=== PATIENT | male | born 1955 | race Caucasian/White ===

== ENCOUNTER 2016-11-17 08:58 | Outpatient (CLI) | payer OTHER | END 2016-11-17 08:59 | disposition home or self-care (01) | LOC: BURLAB 08:58 | PROVIDERS: ATTEND Physician Assistant Medical | DX: B19.20 Unspecified viral hepatitis C without hepatic coma (principal) | CPT/HCPCS: 36415; 87522 ==

== ENCOUNTER 2017-02-26 09:33 | Outpatient (CLI) | payer OTHER ==
--- NOTE | 2017-02-26 20:46 | ULT ---
HEPATIC RIGHT UPPER QUADRANT ULTRASOUND 02/26/17 Ultrasonography of the right upper quadrant was performed for evaluation in this patient with known hepatitis C. Documentary images and worksheets were provided and reviewed. The liver does not image exceptionally well due to gas, body habitus, and it is extremely dense. It is enlarged measuring 16.1 cm in oblique sagittal dimension. A diffuse fatty infiltration is suspect ed. There are no dilated intrahepatic ducts or signs of mass. Portal venous flow appears to be towar ds the liver as expected. The gallbladder contains a thick wall measuring 4 mm in thickness. Gallstones are present within the gallbladder. The common bile duct is borderline large at 6 mm in caliber. No stones were appreciate d within the duct. It was not seen in its entirety, however. The right kidney was 10 cm long and con tained no sign of mass or hydronephrosis. The pancreas was seen poorly, but the visible areas were u nremarkable. IMPRESSION: 1. Hepatomegaly and probably diffuse fatty infiltration. 2. Gallstones with wall thickening of the gallbladder which could signify cholecystitis. Border line common bile duct diameter. POS: HOME
== END 2017-02-26 09:34 | disposition home or self-care (01) ==
LOC: BURULT 09:33
PROVIDERS: ATTEND Internal Medicine Gastroenterology
DX: B19.20 Unspecified viral hepatitis C without hepatic coma (principal); K80.20 Calculus of gallbladder without cholecystitis without obstruction; R29.6 Repeated falls; Z86.010 Personal history of colon polyps
CPT/HCPCS: 76705

== ENCOUNTER 2017-03-10 07:37 | Outpatient (CLI) | payer OTHER ==
[2017-03-10 08:21] LABS: Hemoglobin A1c 5.3 % (4.0-6.0)
[2017-03-10 18:25] LABS: Folate (Folic Acid) 5.8 ng/mL (7.0-31.4)
[2017-03-11 14:39] LABS: Ref Lab Test Ordered PAVAL
[2017-03-12 07:33] LABS: Antinuclear AB Negative (Negative)
== END 2017-03-10 07:38 | disposition home or self-care (01) ==
LOC: BURLAB 07:37
PROVIDERS: ATTEND Psychiatry & Neurology Neurology
DX: G95.9 Disease of spinal cord, unspecified (principal)
CPT/HCPCS: 36415; 82390; 82525; 82607; 82746; 83036; 84165; 84425; 84446; 85652; 86038; 86334

== ENCOUNTER 2017-04-26 12:05 | Outpatient (CLI) | payer OTHER | END 2017-04-26 12:06 | disposition home or self-care (01) | LOC: BURLAB 12:05 | PROVIDERS: ATTEND Physician Assistant Medical | DX: B19.20 Unspecified viral hepatitis C without hepatic coma (principal) | CPT/HCPCS: 36415; 87522 ==

== ENCOUNTER 2017-09-29 08:54 | Outpatient (CLI) | payer OTHER ==
--- NOTE | 2017-09-29 18:14 | ULT ---
RIGHT UPPER QUADRANT ABDOMINAL ULTRASOUND: 09/29/17 Comparison is made with the 02/26/17 study. There has been little change in the interval. The liver is mildly enlarged at 16.5 cm in oblique sagi ttal length. It does not image well, just like before but no focal lesions or dilated ducts were seen . There is probably some fatty infiltration. The pancreas was visible in sections. The visible areas appear normal but not all areas were seen adequately. The gallbladder appears to contain a few small stones and sludge. I was not impressed at the wall thickness on today's scan. The common bile duct wa s 6 mm in caliber which is borderline in size. The aorta and IVC were not covered. IMPRESSION: 1. No substantial change since the prior study. 2. Mild hepatomegaly and diffuse fatty infiltration. 3. Small gallstones and sludge without definite wall thickening. POS: HOME
== END 2017-09-29 08:55 | disposition home or self-care (01) ==
LOC: BURULT 08:54
PROVIDERS: ATTEND Internal Medicine Gastroenterology
DX: K74.60 Unspecified cirrhosis of liver (principal); K76.0 Fatty (change of) liver, not elsewhere classified; K80.20 Calculus of gallbladder without cholecystitis without obstruction; Z86.010 Personal history of colon polyps; Z86.19 Personal history of other infectious and parasitic diseases
CPT/HCPCS: 76705

== ENCOUNTER 2018-03-16 09:06 | Outpatient (CLI) | payer OTHER ==
[2018-03-16 09:43] LABS: #Eosinphils 0.2 thou/uL (0.0-0.7); #Lymphocytes 0.9 thou/uL (1.20-3.40); #Monocytes 0.3 thou/uL (0.11-0.59); #Neutrophils 2.7 thou/uL (1.40-6.50); %Basophils 0.9 % (0.0-1.0); %Eosinophils 4.2 % (0.0-10.0); %Lymphocytes 22.8 % (21.0-51.0); %Monocytes 6.9 % (0.0-10.0); %Neutrophils 65.3 % (42.0-75.0); Hemoglobin 13.5 g/dL (14.0-18.0); Mean Corpuscular HGB CONC 34.6 g/dL (32.0-36.0); Mean Corpuscular Hemoglobin 30.8 pg (27.0-31.0); Mean Platelet Volume 6.1 fL (7.4-10.4); Platelet Count 108 thou/uL (130-400); RBC Distribution Width 12.8 % (11.5-14.5); Red Blood Cell (RBC) Count 4.38 mill/uL (4.70-6.10); White Blood Cell (WBC) Count 4.1 thou/uL (4.8-10.8)
[2018-03-16 09:56] LABS: ALT (SGPT) 25 U/L (8-55); AST (SGOT) 29 U/L (5-34); Albumin 4.4 g/dL (3.4-4.8); Alkaline Phosphatase 76 U/L (40-150); Anion Gap 14 mmol/L (10-20); BUN (Urea Nitrogen) 17 mg/dL (8.4-25.7); Calc. Creatinine Clearance 0 mL/min (70-130); Calcium 9.5 mg/dL (7.8-10.44); Carbon Dioxide 25 mmol/L (23-31); Chloride 106 mmol/L (98-107); Estimated GFR-MDRD 76; Globulin 2.7 g/dL (2.4-3.5); Glucose 99 mg/dL (80-115); Potassium 4.3 mmol/L (3.5-5.1); Protein, Total 7.1 g/dL (5.8-8.1); Sodium 141 mmol/L (136-145)
--- NOTE | 2018-03-16 11:50 | ULT ---
LIMITED ABDOMEN ULTRASOUND: HISTORY: Cirrhosis. Hepatis C. COMPARISON: 09/29/17. TECHNIQUE: Limited evaluation of the abdomen is performed. FINDINGS: Pancreas is poorly defined. Increased echogenicity of the liver which limits evaluation for hepatic masses and intrahepatic bilia ry dilatation. Right hepatic lobe measures 15.3 cm. Suboptimal evaluation of the portal vein. Right Kidney: Grossly, no hydronephrosis. The right kidney measures 5.0 x 11.5 cm in the longitudinal pain. Subop timal evaluation of the right kidney in the transverse dimension. Sonographic evidence of cholelithiasis. A small amount of sludge is also present. Gallbladder wall does not appear to be thickened. No significant pericholecystic fluid. Accounting Assistant does not comment on the presence or absence of Ham's sign. Limited evaluation of the common bile duct. IMPRESSION: 1. Increased echogenicity of the liver likely due to hepatic steatosis or hepatocellular disease. 2. Sonographic evidence of cholelithiasis without evidence of cholecystitis. POS: [facility]
[2018-03-17 05:36] LABS: PLT Morphology Comment Appears Decreased; RBC Morphology Normal
== END 2018-03-16 09:07 | disposition home or self-care (01) ==
LOC: BURULT 09:06
PROVIDERS: ATTEND Internal Medicine Gastroenterology
DX: K74.60 Unspecified cirrhosis of liver (principal); K80.20 Calculus of gallbladder without cholecystitis without obstruction; R93.2 Abnormal findings on diagnostic imaging of liver and biliary tract; Z86.19 Personal history of other infectious and parasitic diseases
CPT/HCPCS: 36415; 76705; 80053; 82105; 82140; 85025

== ENCOUNTER 2018-05-01 15:14 | Emergency (ER) | payer OTHER ==
--- NOTE | 2018-05-01 16:14 | RAD ---
LEFT RIBS 3 VIEWS: Date: 05/01/18 HISTORY: Injury to left chest and ribs. FINDINGS: On the oblique view, there is suggestion of cortical disruption involving the lateral aspect of the l eft fifth rib. This is not confirmed on the other images. No other fracture identified. Left lung is clear and well aerated. IMPRESSION: Question fracture lateral fifth rib. POS: [facility]
== END 2018-05-01 15:57 | disposition home or self-care (01) ==
LOC: BURERS 15:14
DX: S22.32XA Fracture of one rib, left side, initial encounter for closed fracture (principal); I10 Essential (primary) hypertension; F32.9 Major depressive disorder, single episode, unspecified; F17.210 Nicotine dependence, cigarettes, uncomplicated; Z79.899 Other long term (current) drug therapy; Z79.82 Long term (current) use of aspirin; W18.30XA Fall on same level, unspecified, initial encounter; Y93.01 Activity, walking, marching and hiking

== ENCOUNTER 2018-10-12 15:37 | Outpatient (CLI) | payer OTHER ==
--- NOTE | 2018-10-12 20:15 | RAD ---
RIGHT HUMERUS TWO VIEWS: 10/12/18 No fracture was evident. The humerus appears intact. IMPRESSION: No acute finding. POS: HOME
--- NOTE | 2018-10-12 21:22 | RAD ---
RIGHT SHOULDER THREE VIEWS: 10/12/18 No fracture or current dislocation was seen. The AC joint is normal in width. There is an irregularit y, however, along the superolateral portion of the humeral head and extending towards the greater tub ercle. Sometimes this can be a Hill-Sachs deformity from an old dislocation. The glenoid fossa seems smooth. An old healed fracture of the distal one third of the clavicle was noted. IMPRESSION: 1. No acute bony injury. 2. Healed clavicular fracture. 3. Possible Hill-Sachs deformity of the humeral head (? prior dislocation). POS: HOME
== END 2018-10-12 15:38 | disposition home or self-care (01) ==
LOC: BURRAD 15:37
PROVIDERS: ATTEND Family Medicine
DX: M79.601 Pain in right arm (principal); Z87.81 Personal history of (healed) traumatic fracture

== ENCOUNTER 2018-11-22 19:05 | Emergency (ER) | payer OTHER ==
[2018-11-22 20:36] LABS: Clarity Cloudy (Clear)
[2018-11-22 20:37] LABS: Bilirubin Small (Negative); Blood, Urine Trace (Negative); Glucose, Urine (Dipstick) Negative (Negative); Leukocyte Large (Negative); Nitrite Positive (Negative); Protein, Urine (Dipstick) Negative (Neg-Trace); Urobilinogen > or = 8.0 mg/dL (0.2-1.0); pH, Urine 7.5 (5.0-9.0)
[2018-11-22 20:41] LABS: #Eosinphils 0.1 thou/uL (0.0-0.7); #Monocytes 0.7 thou/uL (0.11-0.59); #Neutrophils 5.5 thou/uL (1.40-6.50); %Basophils 0.6 % (0.0-1.0); %Eosinophils 0.9 % (0.0-10.0); %Lymphocytes 13.6 % (21.0-51.0); %Monocytes 9.6 % (0.0-10.0); %Neutrophils 75.3 % (42.0-75.0); ALT (SGPT) 24 U/L (8-55); AST (SGOT) 23 U/L (5-34); Albumin 4.3 g/dL (3.4-4.8); Alkaline Phosphatase 62 U/L (40-150); Anion Gap 14 mmol/L (10-20); BUN (Urea Nitrogen) 16 mg/dL (8.4-25.7); Bilirubin, Total 1.8 mg/dL (0.2-1.2); Calc. Creatinine Clearance 0 mL/min (70-130); Calcium 9.9 mg/dL (7.8-10.44); Carbon Dioxide 25 mmol/L (23-31); Chloride 104 mmol/L (98-107); Estimated GFR-MDRD Greater than 90; Globulin 2.9 g/dL (2.4-3.5); Glucose 109 mg/dL (80-115); Hemoglobin 13.3 g/dL (14.0-18.0); Mean Corpuscular HGB CONC 34.5 g/dL (32.0-36.0); Mean Corpuscular Hemoglobin 31.2 pg (27.0-31.0); Mean Corpuscular Volume 90.4 fL (78.0-98.0); Platelet Count 107 thou/uL (130-400); Protein, Total 7.2 g/dL (5.8-8.1); RBC Distribution Width 13.2 % (11.5-14.5); Red Blood Cell (RBC) Count 4.25 mill/uL (4.70-6.10); Sodium 139 mmol/L (136-145); White Blood Cell (WBC) Count 7.3 thou/uL (4.8-10.8)
[2018-11-22 20:42] LABS: Critical Call w/ Read Back NOT CALLED; Manual Diff?? YES
[2018-11-22 20:43] LABS: Bacteria/HPF 4+ HPF (None Seen); RBC/HPF 0-3 HPF (0-3); Squamous Epithelial 0-3 HPF (0-3)
[2018-11-22 20:43] LABS: MDiff Complete? YES; Platelet Morphology Comment Appears Decreased
[2018-11-22] MEDS ORDERED: Cephalexin 500 MG CAP ONE (21:11)
[2018-11-22] MEDS ORDERED: Sulfameth/Trimethoprim DS 800-160mg TAB ONE (21:11)
--- NOTE | 2018-11-22 21:36 | RAD ---
RIGHT ELBOW FOUR VIEWS: 11/22/18 Reticulation is seen in the soft tissues posterior to the elbow and there is considerable swelling ov er the olecranon. Nevertheless, no fracture was appreciated. I do not see definite displacement of th e fat pads to allow the diagnosis of joint fluid. There is some minor bone spurring in the joint. IMPRESSION: Prominent soft tissue swelling without definite acute bony finding. POS: HOME
== END 2018-11-22 21:11 | disposition home or self-care (01) ==
LOC: BURERS 19:05
DX: L03.113 Cellulitis of right upper limb (principal); N39.0 Urinary tract infection, site not specified; F32.9 Major depressive disorder, single episode, unspecified; I10 Essential (primary) hypertension; F17.210 Nicotine dependence, cigarettes, uncomplicated; Z79.82 Long term (current) use of aspirin; Z79.899 Other long term (current) drug therapy
CPT/HCPCS: 10160; 36415; 80053; 81003; 81015; 85025; 87040; 87070; 87077; 87086; 87186; 87205

== ENCOUNTER 2018-12-21 09:36 | Outpatient (CLI) | payer OTHER ==
[2018-12-21 11:11] LABS: INR-International Normal Ratio 1.1; Prothrombin Time 14.1 SEC (12.0-14.7)
[2018-12-21 17:38] LABS: ALT (SGPT) 20 U/L (8-55); AST (SGOT) 25 U/L (5-34); Alkaline Phosphatase 85 U/L (40-150); Anion Gap 12 mmol/L (10-20); BUN (Urea Nitrogen) 18 mg/dL (8.4-25.7); Bilirubin, Total 1.3 mg/dL (0.2-1.2); Calc. Creatinine Clearance 0 mL/min (70-130); Calcium 9.6 mg/dL (7.8-10.44); Carbon Dioxide 30 mmol/L (23-31); Chloride 100 mmol/L (98-107); Estimated GFR-MDRD Greater than 90; Globulin 2.6 g/dL (2.4-3.5); Glucose 108 mg/dL (80-115); Potassium 3.4 mmol/L (3.5-5.1); Protein, Total 6.6 g/dL (5.8-8.1); Sodium 139 mmol/L (136-145)
[2018-12-21 17:48] LABS: #Eosinphils 0.1 thou/uL (0.0-0.7); #Monocytes 0.5 thou/uL (0.11-0.59); #Neutrophils 5.9 thou/uL (1.40-6.50); %Basophils 0.1 % (0.0-1.0); %Eosinophils 0.7 % (0.0-10.0); %Lymphocytes 13.1 % (21.0-51.0); %Monocytes 6.9 % (0.0-10.0); %Neutrophils 79.1 % (42.0-75.0); Hemoglobin 14.2 g/dL (14.0-18.0); Mean Corpuscular HGB CONC 32.2 g/dL (32.0-36.0); Mean Corpuscular Hemoglobin 30.1 pg (27.0-31.0); Mean Corpuscular Volume 93.3 fL (78.0-98.0); Platelet Count 157 thou/uL (130-400); RBC Distribution Width 12.9 % (11.5-14.5); Red Blood Cell (RBC) Count 4.72 mill/uL (4.70-6.10); White Blood Cell (WBC) Count 7.5 thou/uL (4.8-10.8)
--- NOTE | 2018-12-21 20:52 | ULT ---
RIGHT UPPER QUADRANT ULTRASOUND: 12/21/18 Comparison is made with a prior ultrasound dated 03/16/18. Once again hepatomegaly is seen. The liver seems larger today, measuring 19.4 cm in oblique sagittal length through the right lobe. It is echo dense but no gross mass or dilated duct was seen. Portal ve nous flow appears to be towards the liver. The gallbladder is seen less than optimally. On several im ages there is the suggestion of gallstones within it. The prior study more convincingly showed gallst ones. The common bile duct today was measured at about 8 to 9 mm which is large. The view given of it on the ultrasound was suboptimal, however. The right kidney is 11.2 cm long and appears normal. The pancreas was seen poorly on this study. IMPRESSION: 1. Hepatomegaly. The hepatic size seems a bit larger than the prior 03/16/18 study. 2. Potential mild enlargement of the common bile duct without intrahepatic dilation. 3. Probable gallstones. POS: HOME
== END 2018-12-21 09:37 | disposition home or self-care (01) ==
LOC: BURULT 09:36
PROVIDERS: ATTEND Internal Medicine Gastroenterology
DX: K74.60 Unspecified cirrhosis of liver (principal); G98.8 Other disorders of nervous system; R16.0 Hepatomegaly, not elsewhere classified; K83.8 Other specified diseases of biliary tract
CPT/HCPCS: 36415; 76705; 80053; 85025; 85610

== ENCOUNTER 2018-12-30 08:27 | Inpatient (IN) | payer OTHER ==
[2018-12-30 08:57] LABS: #Basophils 0.1 thou/uL (0.0-0.2); #Eosinphils 0.1 thou/uL (0.0-0.7); #Lymphocytes 0.9 thou/uL (1.20-3.40); #Monocytes 0.5 thou/uL (0.11-0.59); #Neutrophils 11.5 thou/uL (1.40-6.50); %Basophils 0.6 % (0.0-1.0); %Eosinophils 1.1 % (0.0-10.0); %Lymphocytes 6.9 % (21.0-51.0); %Monocytes 3.6 % (0.0-10.0); %Neutrophils 87.8 % (42.0-75.0); Hemoglobin 13.7 g/dL (14.0-18.0); Mean Corpuscular HGB CONC 33.7 g/dL (32.0-36.0); Mean Corpuscular Hemoglobin 29.9 pg (27.0-31.0); Mean Corpuscular Volume 88.8 fL (78.0-98.0); Mean Platelet Volume 6.6 fL (7.4-10.4); Platelet Count 170 thou/uL (130-400); RBC Distribution Width 12.5 % (11.5-14.5); Red Blood Cell (RBC) Count 4.56 mill/uL (4.70-6.10); White Blood Cell (WBC) Count 13.1 thou/uL (4.8-10.8)
[2018-12-30 09:16] LABS: ALT (SGPT) 17 U/L (8-55); AST (SGOT) 23 U/L (5-34); Albumin 3.1 g/dL (3.4-4.8); Alkaline Phosphatase 83 U/L (40-150); Anion Gap 14 mmol/L (10-20); BUN (Urea Nitrogen) 13 mg/dL (8.4-25.7); Bilirubin, Total 1.2 mg/dL (0.2-1.2); Calc. Creatinine Clearance 0 mL/min (70-130); Calcium 8.6 mg/dL (7.8-10.44); Carbon Dioxide 35 mmol/L (23-31); Estimated GFR-MDRD Greater than 90; Globulin 2.7 g/dL (2.4-3.5); Glucose 116 mg/dL (80-115); Protein, Total 5.8 g/dL (5.8-8.1)
[2018-12-30 09:20] LABS: Chloride 91 mmol/L (98-107); Sodium 139 mmol/L (136-145)
[2018-12-30] MEDS ORDERED: metroNIDAZOLE 500 MG/100 ML BAG ONE (09:24)
[2018-12-30 09:37] LABS: Potassium 2.3 mmol/L (3.5-5.1)
[2018-12-30] MEDS ORDERED: Ondansetron ODT 4 MG TAB SL PRN (15:02)
[2018-12-30] MEDS ORDERED: Acetaminophen 325 MG TAB PO PRN (15:02)
[2018-12-30] MEDS ORDERED: Ondansetron PF 4 MG/2 ML Vial IVP PRN (15:02)
[2018-12-30] MEDS ORDERED: D5 1/2 NS w/20 mEq KCL 1,000 ML IV SCH (15:15)
[2018-12-30] MEDS ORDERED: Vancomycin HCl 1 GM in Sodium Chloride 0.9% 250 ML 250 ML IVPB SCH (16:00)
[2018-12-30] MEDS: D5 1/2 NS w/20 mEq KCL 1,000 ML IV SCH (19:06)
[2018-12-30] MEDS ORDERED: Simvastatin 20 MG TAB PO SCH (21:00)
[2018-12-30] MEDS: Vancomycin HCl 25 MG/ML Oral PO SCH (22:26)
[2018-12-30] MEDS: Famotidine 20 MG TAB PO SCH (22:27)
[2018-12-30] MEDS ORDERED: Simvastatin 40 MG TAB PO SCH (22:30)
--- NOTE | 2018-12-31 00:57 | HP ---
CHIEF COMPLAINT: Persistent diarrhea. HISTORY OF PRESENT ILLNESS: A 63-year-old male, presented to the [facility] Emergency Department earlier today via EMS due to intractable diarrhea over the last week. The patient is a poor historian in general related to an undiagnosed neurological degenerative disorder, for which he is being followed by Dr. Galdamez. The patient does report to have had multiple episodes of diarrhea daily over the last week without associated nausea or vomiting. He has had some mild abdominal discomfort. He denies having hematochezia or melena. Denies fever, chills, or diaphoresis. Of note, he was hospitalized in November of this year for cellulitis of the right upper extremity requiring Infectious Disease consultation and antibiotic therapy, of which he completed a course of oral cephalexin as an outpatient in early December. He reports to have fairly decent intake throughout his diarrheal symptoms. In the emergency department, laboratory workup did reveal leukocytosis with a left shift along with hypokalemia at 2.3. He received IV vancomycin along with D5 half-normal saline with potassium chloride and IV metronidazole in the emergency department; he also received 20 mEq of oral potassium. The patient has been admitted to the floor with infectious diarrhea, isolated to be Clostridium difficile with the need for electrolyte correction, specifically his potassium and improved hydration. Stool cultures were obtained in the emergency department. At the time of exam, the patient is fairly comfortable with only minimal abdominal discomfort. He really has no other current complaints otherwise. PAST MEDICAL HISTORY: Includes hypertension, depression, anxiety, and neurological degenerative disorder with frequent falls. PAST SURGICAL HISTORY: Arm surgery in the past. FAMILY HISTORY: Mother is . Father is . He has one brother, who is living out of 7 brothers and sisters, and he is typically cared for by his ex-. SOCIAL HISTORY: Denies tobacco use, alcohol, or illicit drug use. Again, he is cared for by his ex-. ALLERGIES: NO KNOWN DRUG ALLERGIES. REVIEW OF SYSTEMS: GENERAL: Denies fever. EARS, NOSE AND THROAT: Denies sore throat, nasal drainage, or congestion. CARDIOVASCULAR: Denies chest pain. RESPIRATORY: Denies shortness of breath or cough. GASTRO: Reports diarrhea and mild abdominal discomfort. Denies nausea or vomiting. GENITOURINARY: Denies dysuria. MUSCULOSKELETAL: Denies joint swelling. DERM: Denies rash. NEURO: Denies headache. LABORATORY DATA: White blood cells 13.1, H and H are 13.7 and 40.5, and platelets are 170. Sodium 139, potassium 2.3, anion gap is 14, BUN is 13, creatinine 0.75 with a GFR greater than 90, glucose is 116, lactic acid 1.0, AST 23, and ALT 17. PHYSICAL EXAMINATION: VITAL SIGNS: Temperature is 98.6, pulse is 93, respiratory rate is 20, oxygen is 95% on room air, blood pressure is 104/73. GENERAL: The patient is alert, in no acute distress. He is overweight. HEENT: Face shows no asymmetry. Eyes; extraocular muscles are intact bilaterally with no discharge. Head, eyes, ears, nose, and throat are within normal limits. Oral cavity, moist mucous membranes. NECK: Supple. No lymphadenopathy. CARDIOVASCULAR: Regular rate and rhythm. Normal S1 and S2. No murmurs, rubs, or gallops. RESPIRATORY: Clear to auscultation bilaterally with no wheezes, rales, or rhonchi. GASTROINTESTINAL: Soft, mildly tender to palpation diffusely with no masses. EXTREMITIES: No clubbing, cyanosis, or edema. MUSCULOSKELETAL: He is unable to fully extend the right upper extremity overhead. Upholsterer Inside strength is 5/5 bilaterally. SKIN: He has scattered abrasions to extremities. NEUROLOGIC: Nonfocal. He has stuttering speech with slow response time. He does follow commands appropriately. ASSESSMENT AND PLAN: 1. Infectious diarrhea, Clostridium difficile. Stool studies have been ordered. The patient did receive IV vancomycin and IV metronidazole in the emergency department. I will resume him on vancomycin 125 mg p.o. q.i.d. at this time, I will also start him on Florastor for probiotic therapy. 2. Dehydration. The patient is on D5 half-normal saline at 100 mL an hour. We will resume this overnight and re-evaluate in the morning. 3. Hypokalemia. The patient received 20 mEq p.o. potassium in the emergency department. He is receiving potassium via his D5 half-normal saline as well. We will re-evaluate his metabolic panel in the morning. 4. Hypertension. The patient is hemodynamically stable. We will resume his home blood pressure medication. 5. Neurological degenerative disorder and this is of unknown etiology and being followed by Neurology at this point. He is cared for by his ex- currently in regard to his special needs. 6. Frequent falls. The patient either ambulates with the assistance of a walker or uses a wheelchair for mobilization. 7. Anxiety and depression. We will resume the patient on his Zoloft and diazepam. 8. Prophylaxis. We will provide famotidine for gastrointestinal prophylaxis and Lovenox for deep venous thrombosis prophylaxis. 9. Code status is full resuscitation. Job ID: [id number] MTDD
[2018-12-31] MEDS: D5 1/2 NS w/20 mEq KCL 1,000 ML IV SCH (03:56)
[2018-12-31 06:08] LABS: #Basophils 0.1 thou/uL (0.0-0.2); #Eosinphils 0.2 thou/uL (0.0-0.7); #Lymphocytes 0.7 thou/uL (1.20-3.40); #Monocytes 0.7 thou/uL (0.11-0.59); #Neutrophils 10.7 thou/uL (1.40-6.50); %Basophils 0.6 % (0.0-1.0); %Eosinophils 1.9 % (0.0-10.0); %Lymphocytes 5.9 % (21.0-51.0); %Monocytes 5.2 % (0.0-10.0); %Neutrophils 86.4 % (42.0-75.0); Hemoglobin 12.3 g/dL (14.0-18.0); Mean Corpuscular HGB CONC 34.3 g/dL (32.0-36.0); Mean Corpuscular Hemoglobin 29.9 pg (27.0-31.0); Mean Corpuscular Volume 87.2 fL (78.0-98.0); Mean Platelet Volume 6.5 fL (7.4-10.4); Platelet Count 162 thou/uL (130-400); RBC Distribution Width 12.1 % (11.5-14.5); Red Blood Cell (RBC) Count 4.12 mill/uL (4.70-6.10); White Blood Cell (WBC) Count 12.3 thou/uL (4.8-10.8)
[2018-12-31 06:19] LABS: ALT (SGPT) 15 U/L (8-55); AST (SGOT) 21 U/L (5-34); Albumin 2.8 g/dL (3.4-4.8); Alkaline Phosphatase 79 U/L (40-150); Anion Gap 10 mmol/L (10-20); BUN (Urea Nitrogen) 11 mg/dL (8.4-25.7); Calc. Creatinine Clearance 0 mL/min (70-130); Carbon Dioxide 34 mmol/L (23-31); Chloride 95 mmol/L (98-107); Estimated GFR-MDRD Greater than 90; Globulin 2.4 g/dL (2.4-3.5); Glucose 126 mg/dL (80-115); Protein, Total 5.2 g/dL (5.8-8.1); Sodium 136 mmol/L (136-145)
[2018-12-31 06:22] LABS: Potassium 2.6 mmol/L (3.5-5.1)
[2018-12-31] MEDS ORDERED: Potassium Chloride 20 MEQ TAB PO SCH (06:45)
[2018-12-31] MEDS ORDERED: Venlafaxine XR 37.5 MG CAP PO SCH (09:00)
[2018-12-31] MEDS: Folic Acid 1 MG TAB PO SCH (09:48)
[2018-12-31] MEDS: Enoxaparin Sodium 40 MG/0.4 ML SYRINGE SC SCH (09:49)
[2018-12-31] MEDS: Saccharomyces boulardii 250 MG CAP PO SCH (09:49)
[2018-12-31] MEDS: Famotidine 20 MG TAB PO SCH ×2 (09:49→21:52)
[2018-12-31] MEDS: Tamsulosin HCl 0.4 MG CAP PO SCH (09:49)
[2018-12-31] MEDS: Stress 600 With Zinc 1 TAB PO SCH (09:50)
[2018-12-31] MEDS: Vancomycin HCl 25 MG/ML Oral PO SCH ×4 (09:51→21:52)
[2018-12-31] MEDS: Aspirin Chewable 81 MG TAB PO SCH (10:50)
[2018-12-31] MEDS: Simvastatin 40 MG TAB PO SCH (21:51)
[2019-01-01 05:50] LABS: #Eosinphils 0.2 thou/uL (0.0-0.7); #Lymphocytes 0.6 thou/uL (1.20-3.40); #Monocytes 0.6 thou/uL (0.11-0.59); #Neutrophils 9.7 thou/uL (1.40-6.50); %Basophils 0.4 % (0.0-1.0); %Eosinophils 1.9 % (0.0-10.0); %Lymphocytes 5.3 % (21.0-51.0); %Neutrophils 87.3 % (42.0-75.0); Hemoglobin 12.3 g/dL (14.0-18.0); Mean Corpuscular HGB CONC 33.8 g/dL (32.0-36.0); Mean Corpuscular Hemoglobin 29.5 pg (27.0-31.0); Mean Corpuscular Volume 87.5 fL (78.0-98.0); Mean Platelet Volume 6.7 fL (7.4-10.4); Platelet Count 155 thou/uL (130-400); Red Blood Cell (RBC) Count 4.15 mill/uL (4.70-6.10); White Blood Cell (WBC) Count 11.1 thou/uL (4.8-10.8)
[2019-01-01 05:58] LABS: Anion Gap 11 mmol/L (10-20); BUN (Urea Nitrogen) 10 mg/dL (8.4-25.7); Calc. Creatinine Clearance 0 mL/min (70-130); Calcium 8.1 mg/dL (7.8-10.44); Carbon Dioxide 33 mmol/L (23-31); Chloride 96 mmol/L (98-107); Estimated GFR-MDRD Greater than 90; Glucose 113 mg/dL (80-115); Sodium 137 mmol/L (136-145)
[2019-01-01 06:04] LABS: Potassium 2.6 mmol/L (3.5-5.1)
[2019-01-01] MEDS ORDERED: Potassium Chloride 20 MEQ TAB PO SCH ×2 (06:45→17:00)
[2019-01-01] MEDS: Vancomycin HCl 25 MG/ML Oral PO SCH ×4 (09:35→21:17)
[2019-01-01] MEDS: Enoxaparin Sodium 40 MG/0.4 ML SYRINGE SC SCH (09:35)
[2019-01-01] MEDS: Tamsulosin HCl 0.4 MG CAP PO SCH (09:37)
[2019-01-01] MEDS: Folic Acid 1 MG TAB PO SCH (09:37)
[2019-01-01] MEDS: Aspirin Chewable 81 MG TAB PO SCH (09:38)
[2019-01-01] MEDS: Famotidine 20 MG TAB PO SCH ×2 (09:38→21:17)
[2019-01-01] MEDS: Potassium Chloride 20 MEQ TAB PO SCH (09:38)
[2019-01-01] MEDS: Saccharomyces boulardii 250 MG CAP PO SCH (09:38)
[2019-01-01] MEDS: Stress 600 With Zinc 1 TAB PO SCH (09:39)
[2019-01-01] MEDS ORDERED: Dicyclomine 20 MG TAB ONE (11:32)
[2019-01-01] MEDS: Dicyclomine 20 MG TAB PO PRN (11:51)
[2019-01-01 18:10] VITALS: BMI 31.2
[2019-01-01] MEDS: Simvastatin 40 MG TAB PO SCH (21:17)
[2019-01-02 05:44] LABS: #Eosinphils 0.2 thou/uL (0.0-0.7); #Lymphocytes 0.7 thou/uL (1.20-3.40); #Monocytes 0.5 thou/uL (0.11-0.59); #Neutrophils 6.2 thou/uL (1.40-6.50); %Basophils 0.6 % (0.0-1.0); %Lymphocytes 9.7 % (21.0-51.0); %Monocytes 5.9 % (0.0-10.0); %Neutrophils 80.8 % (42.0-75.0); Hemoglobin 11.5 g/dL (14.0-18.0); Mean Corpuscular HGB CONC 33.1 g/dL (32.0-36.0); Mean Corpuscular Volume 87.5 fL (78.0-98.0); Mean Platelet Volume 6.9 fL (7.4-10.4); Platelet Count 154 thou/uL (130-400); RBC Distribution Width 12.3 % (11.5-14.5); Red Blood Cell (RBC) Count 3.95 mill/uL (4.70-6.10); White Blood Cell (WBC) Count 7.6 thou/uL (4.8-10.8)
[2019-01-02 05:52] LABS: ALT (SGPT) 16 U/L (8-55); AST (SGOT) 21 U/L (5-34); Albumin 2.6 g/dL (3.4-4.8); Alkaline Phosphatase 76 U/L (40-150); Anion Gap 11 mmol/L (10-20); BUN (Urea Nitrogen) 12 mg/dL (8.4-25.7); Bilirubin, Total 0.6 mg/dL (0.2-1.2); Calc. Creatinine Clearance 168 mL/min (70-130); Calcium 8.2 mg/dL (7.8-10.44); Carbon Dioxide 34 mmol/L (23-31); Chloride 98 mmol/L (98-107); Estimated GFR-MDRD Greater than 90; Globulin 2.5 g/dL (2.4-3.5); Glucose 103 mg/dL (80-115); Magnesium 2.4 mg/dL (1.6-2.6); Protein, Total 5.1 g/dL (5.8-8.1); Sodium 140 mmol/L (136-145)
[2019-01-02 05:54] LABS: Potassium 2.9 mmol/L (3.5-5.1)
[2019-01-02] MEDS ORDERED: Potassium Chloride 20 MEQ TAB PO SCH ×2 (07:45→18:00)
[2019-01-02] MEDS: Saccharomyces boulardii 250 MG CAP PO SCH (09:40)
[2019-01-02] MEDS: Folic Acid 1 MG TAB PO SCH (09:40)
[2019-01-02] MEDS: Potassium Chloride 20 MEQ TAB PO SCH (09:41)
[2019-01-02] MEDS: Tamsulosin HCl 0.4 MG CAP PO SCH (09:41)
[2019-01-02] MEDS: Aspirin Chewable 81 MG TAB PO SCH (09:41)
[2019-01-02] MEDS: Vancomycin HCl 25 MG/ML Oral PO SCH ×4 (09:42→21:31)
[2019-01-02] MEDS: Famotidine 20 MG TAB PO SCH ×2 (09:42→21:29)
[2019-01-02] MEDS: Enoxaparin Sodium 40 MG/0.4 ML SYRINGE SC SCH (09:42)
[2019-01-02] MEDS: Stress 600 With Zinc 1 TAB PO SCH (09:49)
[2019-01-02] MEDS ORDERED: Dicyclomine 20 MG TAB ONE ×2 (10:46→21:51)
[2019-01-02] MEDS: Dicyclomine 20 MG TAB PO PRN ×2 (10:55→21:56)
[2019-01-02] MEDS: Simvastatin 40 MG TAB PO SCH (21:30)
[2019-01-03] MEDS: Diazepam 5 MG TAB PO PRN ×2 (00:16→20:16)
[2019-01-03 05:49] LABS: #Eosinphils 0.2 thou/uL (0.0-0.7); #Lymphocytes 0.7 thou/uL (1.20-3.40); #Monocytes 0.4 thou/uL (0.11-0.59); #Neutrophils 4.9 thou/uL (1.40-6.50); %Basophils 0.6 % (0.0-1.0); %Lymphocytes 11.6 % (21.0-51.0); Hemoglobin 11.3 g/dL (14.0-18.0); Mean Corpuscular HGB CONC 33.3 g/dL (32.0-36.0); Mean Corpuscular Hemoglobin 29.3 pg (27.0-31.0); Mean Corpuscular Volume 87.8 fL (78.0-98.0); Mean Platelet Volume 6.1 fL (7.4-10.4); Platelet Count 167 thou/uL (130-400); RBC Distribution Width 12.2 % (11.5-14.5); Red Blood Cell (RBC) Count 3.85 mill/uL (4.70-6.10); White Blood Cell (WBC) Count 6.2 thou/uL (4.8-10.8)
[2019-01-03 05:55] LABS: Anion Gap 11 mmol/L (10-20); BUN (Urea Nitrogen) 14 mg/dL (8.4-25.7); Calc. Creatinine Clearance 160 mL/min (70-130); Calcium 8.4 mg/dL (7.8-10.44); Carbon Dioxide 32 mmol/L (23-31); Chloride 101 mmol/L (98-107); Estimated GFR-MDRD Greater than 90; Glucose 103 mg/dL (80-115); Potassium 3.2 mmol/L (3.5-5.1); Sodium 141 mmol/L (136-145)
[2019-01-03] MEDS ORDERED: Potassium Chloride 20 MEQ TAB PO SCH ×2 (07:28→18:00)
[2019-01-03] MEDS: Vancomycin HCl 25 MG/ML Oral PO SCH ×4 (09:35→20:13)
[2019-01-03] MEDS: Folic Acid 1 MG TAB PO SCH (09:36)
[2019-01-03] MEDS: Tamsulosin HCl 0.4 MG CAP PO SCH (09:36)
[2019-01-03] MEDS: Saccharomyces boulardii 250 MG CAP PO SCH (09:36)
[2019-01-03] MEDS: Potassium Chloride 20 MEQ TAB PO SCH (09:36)
[2019-01-03] MEDS: Aspirin Chewable 81 MG TAB PO SCH (09:37)
[2019-01-03] MEDS: Stress 600 With Zinc 1 TAB PO SCH (09:37)
[2019-01-03] MEDS: Enoxaparin Sodium 40 MG/0.4 ML SYRINGE SC SCH (09:37)
[2019-01-03] MEDS: Famotidine 20 MG TAB PO SCH ×2 (09:37→20:14)
[2019-01-03] MEDS ORDERED: Dicyclomine 20 MG TAB ONE (19:47)
[2019-01-03] MEDS: Dicyclomine 20 MG TAB PO PRN (20:14)
[2019-01-03] MEDS: Simvastatin 40 MG TAB PO SCH (20:15)
--- NOTE | 2019-01-03 21:16 | DIS ---
DATE OF ADMISSION: 12/30/2018 DATE OF DISCHARGE: 01/04/2019 ADMISSION DIAGNOSES: 1. Infectious diarrhea. 2. Clostridium difficile. 3. Dehydration. 4. Hypokalemia. SECONDARY DIAGNOSES: 1. Hypertension. 2. Neurological degenerative disorder with frequent falls. 3. Anxiety and depression. PROCEDURES: None. HOSPITAL COURSE: This 63-year-old male presented to [facility] Emergency Department via EMS secondary to uncontrolled diarrheal illness. The patient did have accompanying mild abdominal discomfort, but no emesis. In the emergency department, the patient had stool studies obtained, which resulted in positive for Clostridium difficile antigen and toxin. He was negative for Salmonella, Shigella, Escherichia coli, and Campylobacter. Initial lab work revealed leukocytosis with a left shift along with critical low potassium of 2.3. The patient was provided both metronidazole and vancomycin in the emergency department along with potassium and initiation of intravenous fluids and subsequently admitted to the floor for further care. On the floor, the patient was resumed on oral vancomycin and his intravenous fluids and potassium supplementation. His white blood cell count has trended down to normal range and potassium supplementation has improved his current potassium level to 3.2 this morning. The patient was weaned off intravenous fluids. The patient does have a neurodegenerative disorder of which there has been no specified etiology and is being followed by Dr. Galdamez most recently. It was noted that he may have some difficulty with swallowing, thus a swallow study was ordered via speech therapy. Their evaluation resulted in advisement of a nectar thick liquid and pureed diet. The patient has done well with his oral intake and will be advised to remain on this diet now onward. The patient's diarrhea has been tapering and has required nursing care regarding his macerated skin to his buttocks. At this time, we will plan to transition to [facility] to complete his course of antibiotics and skin care. I had a discussion with the patient's ex-, who is his medical power of finance attorney regarding this plan to which she is agreeable. In light of the patient's neurological degenerative disorder, there is a good possibility that he will remain at [facility] for long-term care due to her inability to satisfactorily care for him in his in-home setting. DISPOSITION: The patient will transition to [facility] as a swing patient in a skilled care with potential to transition to long-term stay. DISCHARGE MEDICATIONS: Include: 1. Acetaminophen 650 mg p.o. q.4 hours p.r.n. 2. Aspirin 81 mg p.o. daily. 3. Diazepam 10 mg p.o. q.i.d. p.r.n. 4. Dicyclomine 20 mg p.o. q.i.d. p.r.n. 5. Folic acid 2 mg p.o. daily. 6. Potassium chloride 40 mEq p.o. daily. 7. Florastor 250 mg p.o. daily x10 days. 8. Zoloft 150 mg p.o. daily. 9. Simvastatin 10 mg p.o. at bedtime. 10. Flomax 0.4 mg p.o. daily. 11. Vancomycin 125 mg p.o. q.i.d. x7 days. 12. It would be advised to repeat the patient's potassium within the next few days in the detention setting. Job ID: [id number] MTDD
[2019-01-04 05:12] LABS: Anion Gap 10 mmol/L (10-20); BUN (Urea Nitrogen) 15 mg/dL (8.4-25.7); Calc. Creatinine Clearance 156 mL/min (70-130); Calcium 8.3 mg/dL (7.8-10.44); Carbon Dioxide 32 mmol/L (23-31); Chloride 102 mmol/L (98-107); Estimated GFR-MDRD Greater than 90; Glucose 94 mg/dL (80-115); Potassium 3.2 mmol/L (3.5-5.1); Sodium 141 mmol/L (136-145)
[2019-01-04 05:49] LABS: #Eosinphils 0.2 thou/uL (0.0-0.7); #Lymphocytes 0.7 thou/uL (1.20-3.40); #Monocytes 0.4 thou/uL (0.11-0.59); #Neutrophils 3.9 thou/uL (1.40-6.50); %Basophils 0.6 % (0.0-1.0); %Eosinophils 3.4 % (0.0-10.0); %Lymphocytes 13.8 % (21.0-51.0); %Monocytes 6.7 % (0.0-10.0); %Neutrophils 75.5 % (42.0-75.0); Hemoglobin 10.9 g/dL (14.0-18.0); Mean Corpuscular Hemoglobin 29.8 pg (27.0-31.0); Mean Platelet Volume 5.8 fL (7.4-10.4); Platelet Count 167 thou/uL (130-400); RBC Distribution Width 12.8 % (11.5-14.5); Red Blood Cell (RBC) Count 3.75 mill/uL (4.70-6.10); White Blood Cell (WBC) Count 5.2 thou/uL (4.8-10.8)
[2019-01-04] MEDS: Vancomycin HCl 25 MG/ML Oral PO SCH ×3 (09:52→17:42)
[2019-01-04] MEDS: Saccharomyces boulardii 250 MG CAP PO SCH (09:53)
[2019-01-04] MEDS: Aspirin Chewable 81 MG TAB PO SCH (09:53)
[2019-01-04] MEDS: Potassium Chloride 20 MEQ TAB PO SCH (09:53)
[2019-01-04] MEDS: Tamsulosin HCl 0.4 MG CAP PO SCH (09:53)
[2019-01-04] MEDS: Famotidine 20 MG TAB PO SCH (09:54)
[2019-01-04] MEDS: Enoxaparin Sodium 40 MG/0.4 ML SYRINGE SC SCH (09:54)
[2019-01-04] MEDS: Stress 600 With Zinc 1 TAB PO SCH (09:55)
[2019-01-04] MEDS: Folic Acid 1 MG TAB PO SCH (10:00)
[2019-01-04 13:18] LABS: Mean Corpuscular Volume 89.9 fL (78.0-98.0)
[2019-01-04 18:24] VITALS: BP 107/61; TEMP 97.9
== END 2019-01-04 18:30 | DRG 373 ==
LOC: BURERS 08:27 → BURMED 09:55
PROVIDERS: ADMIT Family Medicine; ATTEND Family Medicine
DX: A04.72 Enterocolitis due to Clostridium difficile, not specified as recurrent (principal); I10 Essential (primary) hypertension; F32.9 Major depressive disorder, single episode, unspecified; F41.9 Anxiety disorder, unspecified; E86.0 Dehydration; E87.6 Hypokalemia; G31.9 Degenerative disease of nervous system, unspecified; R29.6 Repeated falls; Z98.890 Other specified postprocedural states
CPT/HCPCS: 36415; 80048; 80053; 82274; 83605; 83735; 85025; 87045; 87046; 87324; 87449; 87899; 90471; 90686; 93005; G0008; J0500; J1650; J3370; J7050

== ENCOUNTER 2019-04-04 12:17 | Outpatient (CLI) | payer OTHER ==
--- NOTE | 2019-04-04 13:20 | RAD ---
RADIOGRAPH CHEST 2 VIEWS: 04/04/19 HISTORY: 64-year-old male with abnormal breath sounds. FINDINGS: There is no air space density, pulmonary edema, pleural effusion, pneumothorax, or cardiomegaly. IMPRESSION: No acute cardiopulmonary findings. jn [] POS: [facility]
== END 2019-04-04 12:18 | disposition home or self-care (01) ==
LOC: BURRAD 12:17
PROVIDERS: ATTEND Nurse Practitioner Family
DX: R09.89 Other specified symptoms and signs involving the circulatory and respiratory systems (principal)
CPT/HCPCS: 71046

== ENCOUNTER 2019-06-14 12:54 | Emergency (ER) | payer OTHER | END 2019-06-14 14:24 | disposition E | LOC: BURERS 12:54 | DX: I46.9 Cardiac arrest, cause unspecified (principal); E78.5 Hyperlipidemia, unspecified; E78.00 Pure hypercholesterolemia, unspecified; I10 Essential (primary) hypertension; F32.9 Major depressive disorder, single episode, unspecified; F41.0 Panic disorder [episodic paroxysmal anxiety] | CPT/HCPCS: 92950; 96374; 96376 ==